=== PATIENT | male | born 2000 | race Caucasian/White ===

== ENCOUNTER 2019-07-22 12:24 | Emergency (ER) | payer MEDICAID ==
[~2019-07-22] VITALS: Ht 180.3 cm; Wt 78.0 kg
[2019-07-22 13:46] VITALS: BP 110/71
== END 2019-07-22 13:46 | disposition home or self-care (01) ==
LOC: ED 12:24
DX: H72.91 Unspecified perforation of tympanic membrane, right ear (principal); Z98.890 Other specified postprocedural states